=== PATIENT | male | born 1955 | race Caucasian/White ===

== ENCOUNTER → 2016-08-28 | Outpatient (CLI) | payer BC ==
--- NOTE | 2016-08-28 12:08 | RADIOLOGY REPORT PS360 ---
S/R CARDIOLITE COMP (EF WM) COMPARISON: None available HISTORY: Chest pain, SOB DOSE: 10.15 mCi technetium 99m mibi intravenously at rest followed by 31.9 mCi technetium 99m mibi at stress. The patient exercised8 minutes achieving a heart rate 150 bpm. Projected heart rate is 136 bpm. Resting blood pressure is 147/83. Stress blood pressure 180/70. FINDINGS: Ejection fraction is calculated to be 49%. There is global hypokinesia SPECT and polar map images are reviewed. A medium to large sized fixed defect is present involving the anterior wall.. Fixed defect is also noted involving the apex and apical lateral region. Decrease activity involving the inferior wall on both stress and delayed images but does not represent a complete defect. No reversible defects apparent IMPRESSION: 1. Low ejection fraction of 49%. 2. Prominent fixed defects involving the anterior wall in the apical lateral wall consistent with areas of infarction. No reversible defects are evident.
== END ==
LOC: RAD 06:00
DX: R07.9 Chest pain, unspecified (principal); R06.00 Dyspnea, unspecified; I10 Essential (primary) hypertension
CPT/HCPCS: A9500